=== PATIENT | female | born 1985 | race Caucasian/White ===

== ENCOUNTER 2021-03-17 20:41 | Emergency (ER) | payer OTHER ==
[~2021-03-17] VITALS: Ht 175.3 cm; Wt 90.7 kg
--- NOTE | ~2021-03-17 | EMS ---
[address] [address] EMS Patient Care Report Name: FERNY SOLIS Room #: DEP YAMIL Burnette#: [id number] Admission: 03/17/21 Attend Phys: Discharge: 03/18/21 Date of : 83 Report #: [id number] THIS REPORT FOR: //name// Report Transmitted: 03/18/2021 14:53 EMS Care Summary [place], [place]/[facility] Incident [id number] @ 03/17/2021 19:52 Incident Location [address] [place] [address] Patient FERNY SOLIS Female, 35 Years 1985 Patient Address [id number] [place], [place] [id number] Patient History None Reported, Patient Allergies No known allergies, Patient Medications Other, Chief Complaint ETOH Disposition Transported No Lights/[place] Dispatch Reason Sick Person Transported To [facility] Narrative M41 WAS DISPATCHED TO A RESIDENCE ON A SICK. ON ARRIVAL PT IS FOUND ON THE FLOOR OF THE KITCHEN ALERT AND NOT RESPONDING TO EMS QUESTIONS DUE TO CONSTANT DRY HEAVING. PT PRESENTS INTOXICATED BY EMS AND WHEN ASKED PT AND BYSTANDER BOTH SAY YES PT HAS BEEN DRINKING AND WHEN ASKED IF MORE THAN NORMAL THE PT [address] [address] EMS Patient Care Report Name: FERNY SOLIS Room #: DEP ER Vasile#: [id number] Admission: 03/17/21 Attend Phys: Discharge: 03/18/21 Date of : [birth year] Report #: [id number] RESPONDED YES. PT REQUESTS TRANSPORT TO [facility] FOR EVALUATION AND TREATMENT. PT IS CARRIED BY [facility] TO [facility] WHERE PT REMAINS UNTIL SHEET PULL TO HOSPITAL BED. VITALS MONITORED EN ROUTE WITH NO CHANGES IN PT CONDITION. Initial Vitals @20:26P: 110,R: 18,BP: 122/80,Pain: 6/10,GCS: 15,SpO2: 98,Revised Trauma: 12, @20:15P: 104,R: 20,BP: 128/84,Pain: 0/10,GCS: 15,Glucose: 120,SpO2: 97,Revised Trauma: 12, Assessments @20:12MENTAL:Time Oriented,Place Oriented,Event Oriented,Person Oriented,SKIN:HEENT:Head/Face: No Abnormalities,Neck/Airway: No Abnormalities,LUNG SOUNDS:General: Vomiting,General: Nausea,ABDOMEN:General: Vomiting,General: Nausea,PELVIS//GI:No Abnormalities,EXTREMITIES:Left Arm: No Abnormalities,Right Arm: No Abnormalities,Left Leg: No Abnormalities,Right Leg: No Abnormalities,PULSE:NEURO:Slurred Speech, Impression Alcohol use Procedures @20:12 ALS Assessment Response: UnchangedSucceeded Timeline 19:46,Call Received 19:46,Dispatch Notified 19:52,Dispatched 19:54,En Route 20:10,On Scene 20:12,At Patient 20:12,ALS Assessment,Response: UnchangedSucceeded, 20:15,BP: 128/84 M,PULSE: 104,RR: 20 R,SPO2: 97 Ox,ETCO2: ,B,PAIN: 0,GCS: 15, 20:26,BP: 122/80 M,PULSE: 110,RR: 18 R,SPO2: 98 Ox,ETCO2: ,BG: ,PAIN: 6,GCS: 15, 20:29,Depart Scene 20:52,At Destination 20:57,Call Closed Disclaimer v1.1 Copyright 2020 [employer] This EMS Care Summary contains data elements from the applicable legal record (which may be displayed differently). It is designed to provide pertinent information for the following purposes: continuity of care, clinical quality, and state data reporting. The complete legal record is available to ED staff [address] [address] EMS Patient Care Report Name: FERNY SOLIS Room #: DEP YAMIL Burnette#: [id number] Admission: 03/17/21 Attend Phys: Discharge: 03/18/21 Date of : [birth year] Report #: [id number] and administrators of the receiving hospital in [employer]'s Patient Tracker. All data is provided "as is."
[2021-03-17 21:45] LABS: ABSOLUTE NEUTROPHILS 11.9 thou/uL (1.4-8.2); BASOPHILS 0.5 % (0.0-2.0); EOSINOPHILS 0.3 % (0.0-3.0); HEMATOCRIT 37.6 % (37.0-47.0); HEMOGLOBIN 12.9 gm/dL (12.0-15.0); LYMPHOCYTES 11.6 % (24.0-44.0); MCH 31.2 pg (26.0-34.0); MCHC 34.3 g/dL (28.0-37.0); MCV 91.1 fL (80.0-100.0); MONOCYTES 3.1 % (1.0-8.0); PLATELET COUNT 396 thou/uL (150-400); POLYS 84.5 % (36.0-66.0); RBC 4.12 mil/uL (4.20-5.00); RDW 12.5 % (10.5-14.5); WBC 14.1 thou/uL (4.0-11.0)
[2021-03-17 21:58] LABS: ANION GAP 11 mmol/L (7-16); BUN 10 mg/dL (7-18); CALCIUM 8.5 mg/dL (8.5-10.1); CHLORIDE 106 mmol/L (98-107); CO2 27 mmol/L (21-32); CREATININE 0.8 mg/dL (0.6-1.0); GLUCOSE 108 mg/dL (74-106); POTASSIUM 4.4 mmol/L (3.5-5.1); SODIUM 144 mmol/L (136-145)
[2021-03-17 22:07] LABS: ALBUMIN 3.7 g/dL (3.4-5.0); SGOT 18 U/L (15-37); SGPT 34 U/L (30-65); TOTAL BILIRUBIN < 0.1 mg/dL (0.2-1.0); TOTAL PROTEIN 7.9 g/dL (6.4-8.2)
[2021-03-18 00:58] VITALS: BP 99/56
== END 2021-03-18 01:58 | disposition home or self-care (01) ==
LOC: ER 20:41
PROVIDERS: Emergency Medicine
DX: S00.01XA Abrasion of scalp, initial encounter (principal); R11.2 Nausea with vomiting, unspecified; F10.129 Alcohol abuse with intoxication, unspecified; Y90.7 Blood alcohol level of 200-239 mg/100 ml; W18.39XA Other fall on same level, initial encounter; Y93.89 Activity, other specified; Y92.89 Other specified places as the place of occurrence of the external cause; Y99.8 Other external cause status